=== PATIENT | female | born 1940 | race Caucasian/White ===

== ENCOUNTER 2018-03-26 09:16 | Inpatient (IN) | payer OTHER ==
[2018-03-17 19:13] VITALS: BMI 21.1
--- NOTE | 2018-03-26 07:35 | HP ---
History & Physical Update - History History: No Change - Physical Physical: No Change - Assessment Assessment: No Change - Plan Plan: No Change (Initial H&P completed 03/04/18. No new complaints or medications. LBP with radiation to LLE/calf. MRI L4/5 spondylolithesis)
[2018-03-26] MEDS ORDERED: CEFAZOLIN 1 GM in DEXTROSE 5%-WATER - 100 ML IVPB ONE (10:22)
[2018-03-26] MEDS: oxyCODONE HCL 10 MG SUSTAINED ACTING TABLET PO STA ×2 (11:00→17:26)
[2018-03-26] MEDS ORDERED: BUPIVACAINE HCL/PF (5 MG/ML) 30 ML VIAL IJ ONE (12:56)
[2018-03-26] MEDS ORDERED: MIDAZOLAM HCL 2 MG/2 ML SINGLE DOSE VIAL ONE ×2 (12:56→14:52)
[2018-03-26] MEDS ORDERED: THROMBIN (BOVINE) 5,000 UNIT VIAL TP ONE ×2 (13:23→14:11)
[2018-03-26] MEDS ORDERED: LIDOCAINE 1%/EPI 1:100000 (20 ML MULTI DOSE VIAL) ONE (13:23)
[2018-03-26] MEDS ORDERED: LIDOCAINE 1%/EPI 1:100000 (50 ML MULTI DOSE VIAL) INF ONE (13:50)
[2018-03-26] MEDS ORDERED: GELATIN SPONGE,ABSORBABLE 1 GM PACKET TP ONE (14:11)
--- NOTE | 2018-03-26 15:49 | OP ---
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 Allograft implant. Neuromonitoring Post-Operative Diagnosis: Same as Pre-op Surgeon: Ezra Lewis Back Up Scan Coordinator: Reese Pizano Anesthesiologist/TEACHER VOCAL: Marco Benjamin Anesthesia: Spinal Estimated Blood Loss (mls): 25 Fluid Volume Replaced (mls): 900 Operative Report Dictated: Yes
[2018-03-26] MEDS ORDERED: oxyCODONE HCL 5 MG TABLET PO PRN ×3 (15:50→15:51)
[2018-03-26] MEDS ORDERED: ONDANSETRON 4 MG/2 ML VIAL IVPUSH PRN ×2 (15:50→15:51)
[2018-03-26] MEDS ORDERED: PROMETHAZINE HCL 25 MG/1 ML VIAL IVPUSH PRN (15:50)
--- NOTE | 2018-03-26 15:51 | SURG ---
Surgery Head Silverman Note Head Silverman: Reese Pizano PA-C Date of Service: 03/26/18 Diagnosis: L4/5 Spondylolithesis with radiculopathy Procedure: L4/5 Transforaminal lumber interbody fusion / decompression / instrumentation, allograft implant, neuromonitoring I was present for the entirety of the operative procedure. For further detail, please refer to operative report. Visit type - Case Type Case Type: Scheduled - New patient This patient is new to me today: Yes Date on this admission: 03/26/18
[2018-03-26] MEDS ORDERED: ACETAMINOPHEN 1000 MG/100 ML VIAL (NON FORMULARY) IVPB ONE ×2 (15:55→16:00)
[2018-03-26] MEDS ORDERED: LACTATED RINGERS SOLUTION 1,000 ML IV SCH (16:00)
[2018-03-26] MEDS ORDERED: ACETAMINOPHEN 325 MG TABLET (FP) PO SCH (16:00)
--- NOTE | 2018-03-26 16:42 | OP ---
DATE OF OPERATION: 03/26/2018 PREOPERATIVE DIAGNOSES: 1. L4-5 spinal stenosis. 2. L4-5 spondylolisthesis. POSTOPERATIVE DIAGNOSES: 1. L4-5 spinal stenosis. 2. L4-5 spondylolisthesis. PROCEDURE PERFORMED: 1. Transforaminal lumbar interbody fusion, L4-5. 2. Placement of instrumentation. 3. Placement of prosthetic cage. SURGEON: Ezra Lewis MD SYBASE DEVELOPER: LORELEI Burton ESTIMATED BLOOD LOSS: 50 mL INTRAVENOUS FLUIDS: Per Anesthesia. ANESTHESIA: Spinal/TLIP. COMPLICATIONS: None. DISPOSITION: Patient was brought to the PACU in stable condition. INDICATION FOR SURGERY: The patient is a 77-year-old female who has been suffering from pain from her back down her legs. X-rays and MRI were completed which noted that she had a spinal stenosis at L4-5 secondary to a spondylolisthesis. She had gone through an exhaustive course of treatment for this, which included medications, physical therapy as well as injections. Unfortunately, her pain continued to persist despite all this. At this point, risks, benefits, and alternatives were discussed, and the patient consented to surgery. DESCRIPTION OF PROCEDURE: Patient was brought to the operating room by the anesthesia staff. After appropriate patient identification was performed, spinal anesthesia was given along with a TLIP block. Patient was able to position herself prone onto the OR table with all areas of bony prominences well padded at this time. At this point, the C-arm was brought in. The L4 and L5 pedicles were marked off. Next, 10 mL of lidocaine with epinephrine were injected into her back at this time. Her back was prepped and draped in a sterile manner. At this point, a timeout was completed. An incision was made from the top of L4 down to the bottom of L5. Dissection was carried down to the fascia. Fascia was split open at this time. Using C-arm guidance, trocars were advanced into both the L4 and L5 pedicles. Through the trocars, wires were inserted. Over the wires, tap was performed and screws inserted. On the left-hand side, retractor blades were set up to expose the L4-5 facet joint. The facet joint was visualized and was removed. The disk was entered. Using a series of pituitaries, Kerrisons, and curettes, a diskectomy was completed. Endplates were decorticated at this time. Bone graft was laid down. A cage filled with bone graft was placed in. Tulip pads were placed over the screws. A moo was measured and placed in. Caps and compression were applied. On the right-hand side, a moo was measured and placed in. Caps and compression were applied. All extra instrumentation was removed at this time. AP and lateral x-rays confirmed the instrumentation to be in good position. The fascia was closed with a number 1 Vicryl suture. Subcutaneous tissues were closed with 2-0 Vicryl suture. Skin was closed with 3-0 Monocryl suture. Dermabond was applied. Steri-Strips were applied. A sterile dressing was applied. Patient was placed supine on the OR bed and brought to the PACU in stable condition. EZRA LEWIS M.D. ANABELL/[id number]
[2018-03-26] MEDS ORDERED: CEFAZOLIN 1 GM/D5W 1 GM/50 ML BAG IVPB SCH (18:00)
[2018-03-26] MEDS: ACETAMINOPHEN 325 MG TABLET (FP) PO SCH (21:55)
[2018-03-26] MEDS: CEFAZOLIN 1 GM/D5W 1 GM/50 ML BAG IVPB SCH (21:56)
[2018-03-26] MEDS: oxyCODONE HCL 5 MG TABLET PO PRN (21:58)
[2018-03-26] MEDS ORDERED: ROSUVASTATIN CA 10 MG TABLET (FP) PO SCH (22:00)
[2018-03-26] MEDS ORDERED: diazePAM 2 MG TABLET PO PRN (22:00)
[2018-03-27 05:24] VITALS: PULSE 73; TEMP 97.7
[2018-03-27] MEDS: ACETAMINOPHEN 325 MG TABLET (FP) PO SCH ×2 (06:00→10:11)
[2018-03-27] MEDS: oxyCODONE HCL 5 MG TABLET PO PRN (06:00)
[2018-03-27] MEDS: CEFAZOLIN 1 GM/D5W 1 GM/50 ML BAG IVPB SCH (06:01)
--- NOTE | 2018-03-27 07:51 | DS ---
Physical Exam: SUBJECTIVE: Patient seen and examined. No acute events since surgery per RN notes. Patient is ambulating > 250' unassisted. Voiding spontaneously. States her LLE pain has completely resolved. Denies n/v/f/c, CP or SOB OBJECTIVE: Vital Signs Temperature 97.7 F 03/27/18 05:23 Pulse Rate 73 03/27/18 05:23 Respiratory Rate 18 03/27/18 05:23 Blood Pressure 118/52 03/27/18 05:23 O2 Sat by Pulse Oximetry (%) 96 03/27/18 05:23 PHYSICAL EXAM GENERAL: The patient is awake, alert, and fully oriented, in no acute distress. HEAD: Normal with no signs of trauma. EYES: PERRL, extraocular movements intact, sclera anicteric, conjunctiva clear. NECK: Trachea midline, full range of motion, supple. LUNGS: CTA bilat HEART: RRR ABDOMEN: Soft, nontender, nondistended, normoactive bowel sounds EXTREMITIES: 2+ pulses, warm, well-perfused, no edema. NEUROLOGICAL: Cranial nerves II through XII grossly intact. Normal speech, gait not observed. PSYCH: Normal mood, normal affect. SKIN: Lumabr incisions x2 c/d/i. No hematoma/seroma, drainage or erythema. 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 Now, s/p L4/5 TLIF. The day of surgery, the patient ambulated the hallways with assistance. Narcotic and non-narcotic pain management control was achieved with an oral and IV approach. POD #1, an xray was obtained and confirmed hardware placement at L4 /5, no fractures or dislocations. Anahi-operative IV ABX were administered. DVT prophylaxis was achieved with SCDs and early ambulation. The patient ambulated with Physical Therapy and no services were recommended upon discharge. Narcotic scripts and or muscle relaxants were checked with [facility] prior to escribe. The discharge instructions and an oral pain management plan were reviewed with the patient. All questions answered. Above plan discussed with Dr. Lewis and agreed. Minutes to complete discharge: 30 <Reese Pizano P - Last Filed: 03/27/18 07:46> Physical Exam: SUBJECTIVE: Patient seen and examined OBJECTIVE: Vital Signs Temperature 97.7 F 03/27/18 10:08 Pulse Rate 73 03/27/18 10:08 Respiratory Rate 18 03/27/18 10:08 Blood Pressure 105/56 03/27/18 10:08 O2 Sat by Pulse Oximetry (%) 96 03/27/18 05:23 PHYSICAL EXAM GENERAL: The patient is awake, alert, and fully oriented, in no acute distress. HEAD: Normal with no signs of trauma. EYES: PERRL, extraocular movements intact, sclera anicteric, conjunctiva clear. ENT: Ears normal, nares patent, oropharynx clear without exudates, moist mucous membranes. NECK: Trachea midline, full range of motion, supple. LUNGS: Breath sounds equal, clear to auscultation bilaterally, no wheezes, no crackles, no accessory muscle use. HEART: Regular rate and rhythm, S1, S2 without murmur, rub or gallop. ABDOMEN: Soft, nontender, nondistended, normoactive bowel sounds, no guarding, no rebound, no hepatosplenomegaly, no masses. EXTREMITIES: 2+ pulses, warm, well-perfused, no edema. NEUROLOGICAL: Cranial nerves II through XII grossly intact. Normal speech, gait not observed. PSYCH: Normal mood, normal affect. SKIN: Warm, dry, normal turgor, no rashes or lesions noted. LABS CBC,CMP WBC 18.9 K/mm3 (4.0-10.8) H 03/27/18 07:20 RBC 3.54 M/mm3 (3.60-5.2) L 03/27/18 07:20 Hgb 11.7 GM/dl (10.7-15.3) 03/27/18 07:20 Hct 34.3 % (32.4-45.2) 03/27/18 07:20 MCV 96.8 fl (80-96) H 03/27/18 07:20 MCH 33.0 pg (25.7-33.7) 03/27/18 07:20 MCHC 34.1 g/dl (32.0-36.0) 03/27/18 07:20 RDW 13.0 % (11.6-15.6) 03/27/18 07:20 Plt Count 258 K/MM3 (134-434) 03/27/18 07:20 MPV 8.8 fl (7.5-11.1) 03/27/18 07:20 Sodium 134 mmol/L (136-145) L 03/27/18 07:20 Potassium 4.3 mmol/L (3.5-5.1) 03/27/18 07:20 Chloride 98 mmol/L (98-107) 03/27/18 07:20 Carbon Dioxide 25 mmol/L (22-28) 03/27/18 07:20 Anion Gap 11 MMOL/L (8-16) 03/27/18 07:20 BUN 23 mg/dl (7-18) H 03/27/18 07:20 Creatinine 1.1 mg/dl (0.6-1.3) 03/27/18 07:20 Creat Clearance w eGFR 48.04 (>60) 03/27/18 07:20 Random Glucose 162 mg/dl (74-106) H 03/27/18 07:20 Calcium 9.1 mg/dl (8.4-10.2) 03/27/18 07:20 HOSPITAL COURSE: Date of Admission:03/26/18 Date of Discharge: 03/30/18 Patient seen and examined Agree with above D/C Planning <Ezra Lewis - Last Filed: 03/30/18 10:43> Visit type - Case Type Case Type: Scheduled - New patient This patient is new to me today: Yes Date on this admission: 03/27/18 <Reese Pizano - Last Filed: 03/27/18 07:46>
[2018-03-27 08:40] LABS: HEMATOCRIT 34.3 % (32.4-45.2); HEMOGLOBIN 11.7 GM/dl (10.7-15.3); MCHC 34.1 g/dl (32.0-36.0); MEAN CELL VOLUME 96.8 fl (80-96); MEAN PLT VOLUME 8.8 fl (7.5-11.1); PLATELET COUNT 258 K/MM3 (134-434); RBC 3.54 M/mm3 (3.60-5.2); WHITE BLOOD COUNT 18.9 K/mm3 (4.0-10.8)
[2018-03-27 08:49] LABS: ANION GAP 11 MMOL/L (8-16); BLOOD UREA NITROGEN 23 mg/dl (7-18); CALCIUM 9.1 mg/dl (8.4-10.2); CHLORIDE 98 mmol/L (98-107); CO2 25 mmol/L (22-28); CREATININE 1.1 mg/dl (0.6-1.3); GLUCOSE,RANDOM 162 mg/dl (74-106); POTASSIUM 4.3 mmol/L (3.5-5.1); SODIUM 134 mmol/L (136-145)
[2018-03-27 10:10] VITALS: BP 105/56
--- NOTE | 2018-03-27 10:45 | PN ---
Progress Note, Physician Chief Complaint: s.p lumbar fusion under spinal anesthesia History of Present Illness: post op day one - Current Medication List Current Medications: Active Medications Acetaminophen (Tylenol -) 650 mg PO Q6H [facility] Last Admin: 03/27/18 10:11 Dose: Not Given Diazepam (Valium -) 2 mg PO Q12H PRN PRN Reason: ANXIETY Last Admin: 03/27/18 01:03 Dose: 2 mg Lactated Ringer's (Lactated Ringers Solution) 1,000 mls @ 125 mls/hr IV ASDIR [facility] Last Admin: 03/26/18 17:26 Dose: Not Given Cefazolin Sodium (Ancef 1 Gm Premixed Ivpb -) 1 gm in 50 mls @ 100 mls/hr IVPB Q8H [facility] Stop: 03/27/18 21:59 Last Admin: 03/27/18 06:01 Dose: 100 mls/hr Ondansetron HCl (Zofran Injection) 4 mg IVPUSH Q6H PRN PRN Reason: NAUSEA AND/OR VOMITING Oxycodone HCl (Roxicodone -) 5 mg PO Q4H PRN PRN Reason: PAIN LEVEL 1-5 Last Admin: 03/27/18 06:00 Dose: 5 mg Oxycodone HCl (Roxicodone -) 10 mg PO Q4H PRN PRN Reason: PAIN LEVEL 6-10 Promethazine HCl (Phenergan Injection -) 12.5 mg IVPUSH Q6H PRN PRN Reason: NAUSEA-FOR RESCUE AFTER 15 MIN Rosuvastatin Calcium (Crestor -) 10 mg PO [facility] Last Admin: 03/26/18 21:56 Dose: 10 mg - Objective Vital Signs: Vital Signs Temperature 97.7 F 03/27/18 10:08 Pulse Rate 73 03/27/18 10:08 Respiratory Rate 18 03/27/18 10:08 Blood Pressure 105/56 03/27/18 10:08 O2 Sat by Pulse Oximetry (%) 96 03/27/18 05:23 Constitutional: Yes: Well Nourished Cardiovascular: Yes: WNL Respiratory: Yes: WNL Gastrointestinal: Yes: WNL Labs: CBC, BMP 03/27/18 07:20 03/27/18 07:20 Assessment/Plan No adverse effect from anesthetic, dept of anesthesia will sign off care at this time.
== END 2018-03-27 11:45 | disposition home or self-care (01) | DRG 460 ==
LOC: FM/S 09:16 → UNDOADMIN 09:16 → FM/S 16:43
PROVIDERS: ADMIT Orthopaedic Surgery Orthopaedic Surgery of the Spine; ATTEND Orthopaedic Surgery Orthopaedic Surgery of the Spine
PROC: 0ST20ZZ Resection of Lumbar Vertebral Disc, Open Approach (ICD-10-PCS; 2018-03-26)
PROC: 4A11X4G Monitoring of Peripheral Nervous Electrical Activity, Intraoperative, External Approach (ICD-10-PCS; 2018-03-26)
PROC: 0SG00AJ Fusion of Lumbar Vertebral Joint with Interbody Fusion Device, Posterior Approach, Anterior Column, Open Approach (ICD-10-PCS; principal; 2018-03-26 11:15)
DX: M43.16 Spondylolisthesis, lumbar region (principal); M54.16 Radiculopathy, lumbar region
CPT/HCPCS: 36415; 72100-TC-FY; 80048; 85027; 94760; 97116-GP; 97161-GP; J0131